=== PATIENT | male | born 1990 ===

== ENCOUNTER 2021-10-23 09:45 | Emergency (ER) | payer MEDICAID, OTHER ==
[~2021-10-23] VITALS: Ht 172.7 cm; Wt 113.4 kg
[2021-10-23] MEDS ORDERED: FURO1TAB33 PO (14:25)
[2021-10-23 15:00] VITALS: BP 150/83
== END 2021-10-23 15:31 | disposition home or self-care (01) ==
LOC: ER 09:45
DX: R60.0 Localized edema (principal); Z79.899 Other long term (current) drug therapy
CPT/HCPCS: 71045; 93971